=== PATIENT | female | born 1950 | race Caucasian/White ===

== ENCOUNTER 2022-10-24 12:13 | Emergency (ER) | payer MEDICARE, BC ==
[2022-10-24 12:25] VITALS: BP 147/82
--- NOTE | 2022-10-24 12:26 | ED Physician Documentation ---
PD HPI SKIN - Stated complaint Stated Complaint: RT LEG INSECT BITE - Chief complaint Chief Complaint: Ext Problem - History obtained from History obtained from: Patient, Family (spouse) - History of Present Illness Timing - onset: Today (they are traveling with camper from [facility] for the past week. Doing some easy hiking and activity. No fall nor impact. Noted some pain below kneecap yesterday, worse today. Also has two red rounded spots lateral right lower thigh. No noted injury. Did not feel bites, stings. No general body symptom) Timing - details: Abrupt onset (noted this morning. Not aware of the area last night.), Still present Location: RLE (lateral lower thigh.) Quality / character: Discolored (red base with demarcated edge. One rounded and the other U-shaped. No surrounding redness and no warmth, heat, nor induration below the subdrmal layer. No drainage.). No: Itchy, Painful Review of Systems Constitutional: denies: Fever, Chills Neurologic: denies: Generalized weakness, Focal weakness, Numbness PD PAST MEDICAL HISTORY - Present Medications Home Medications: Ambulatory Orders Medication Instructions Recorded Confirmed Diclofenac Sodium [Voltaren 2 gm TP QID #50 gm 10/24/22 Arthritis Pain] - Allergies Allergies/Adverse Reactions: Allergies Allergy/AdvReac Type Severity Reaction Status Date / Time Sulfa (Sulfonamide Allergy Hives Verified 10/24/22 12:23 Antibiotics) PD ED PE NORMAL - Vitals Vital signs reviewed: Yes - General General: Alert and oriented X 3, No acute distress, Well developed/nourished - Derm Derm: Normal color, Warm and dry, Other (rounded slightly raised, scaly edged, nonvesicular 2 cm rash spots (complete circel one and U-shaped other) lateral right lower thigh. ) - Extremities Extremities: Other (right knee tender infrapatellar tendon with fine crapitance onpassive ROM. No effusion. No redness nor warmth. Negative cruciate/collaterl and Apley testing. ) - Neuro Neuro: No motor deficit, No sensory deficit Results - Vitals Vitals: Vital Signs - 24 hr 10/24/22 12:19 Temperature 35.9 C L Heart Rate 82 Respiratory 16 Rate Blood Pressure 147/82 H O2 Saturation 97 Oxygen O2 Source Room air - Rads (name of study) right knee Relevant Findings:: Other (considered xray but no forceful injury and exam c/w tendonitis. ) PD Medical Decision Making - ED course Complexity details: reviewed results (considered xray but exam c/w soft tissue. ), considered differential, d/w patient ED course: the two rounded-chi rash spots on lateral thigh look tinea or yeast like, wiht slightly raised, demarcated edge, mild scaling at edges, red base and no surrounding redness. Could be local venom effect if a spider bite, or something could have contacted there during the day (contact dermatitis). It does not look bacterial. The knee has fine crepitance in infrapatellar tendon. No effusion. Noral cruciate, collaterals, and apley. Seems patellar tendonitis. It is not swollen nor tender enough to think of knee brace at this time, I think would be too cumbersome and the symtpoms/findings are milder enough to not need splint. She does not want oral NSAIDs due to stomach irritation/ulcer in the past. Can try topical such as diclofenac. Departure - Departure Disposition: 01 Home, Self Care Clinical Impression: Patellar tendonitis, Skin rash Condition: Stable Instructions: Kneecap Probs Common Prescriptions: Diclofenac Sodium [Voltaren Arthritis Pain] 2 gm TP QID #50 gm Comments: Your knee pain has a characteristic of a tendinitis. I do not get a sense of injury to the cruciate, collateral, meniscal structures. I would avoid extra walking bending or kneeling. At this point a true knee brace would probably be more annoying to walk straight leg get that way. If this were to increase then in the brace may be indicated. Otherwise this should improve with time and modified use and you could also go a topical anti-inflammatory such as diclofenac topical NSAID to the area 3-4 times daily. Add Tylenol if needed for pains. Regarding the rash, it actually looks almost like a fungal infection although much faster onset than you would expect. More likely a local reaction or even a venom effect. It does not look like a bacterial infection. Watch for signs of progression with increased size depth redness or warmth. Otherwise if its stable or slightly slow-growing then you could try an antifunga l topically such as clotrimazole or terbinafine [id number]. Meanwhile I would presume more of a local reaction/irritation and you could use hydrocortisone cream 2-3 times daily to it and will likely dissipate with that. I sent your prescription to [facility] pharmacy. Discharge Date/Time: 10/24/22 13:15
== END 2022-10-24 13:15 | disposition home or self-care (01) ==
LOC: ED 12:13
DX: M76.51 Patellar tendinitis, right knee (principal); R21 Rash and other nonspecific skin eruption
CPT/HCPCS: 99282; 99283